=== PATIENT | female | born 1955 | race African-American/Black ===

== ENCOUNTER 2024-08-24 14:04 | Inpatient (IN) | payer MEDICARE, MEDICAID ==
[~2024-08-24] VITALS: Ht 157.5 cm; Wt 142.4 kg
[~2024-08-24 14:04] MED LIST: ASPI-1450 PO; ATOR20TA PO; CHOL200059 PO; ESCI-8 PO; HYDR25TA2 PO; LOSA-382 PO; MEMA5TAB41 PO; METF-1211 PO; QUET25TA PO
[2024-08-24] MEDS ORDERED: RISP1TAB48 PO (14:37)
[2024-08-24 14:42] LABS: COVID AG,FIA SOURCE NASAL SWAB
[2024-08-24 14:49] LABS: BASOPHILS % (AUTO) 0.7 % (0.0-2.0); EOSINOPHILS % (AUTO) 0.6 % (1.0-6.0); HEMATOCRIT 37.5 % (36-46); HEMOGLOBIN 12.1 g/dL (12.0-16.0); LYMPHOCYTES # (AUTO) 1.2 K/uL (1.0-4.8); LYMPHOCYTES % (AUTO) 14.2 % (22.0-44.0); MEAN CORPUSCULAR HEMOGLOBIN 28.8 pg (26.0-34.0); MEAN CORPUSCULAR HGB CONC 32.2 G/dL (31.0-37.0); MEAN CORPUSCULAR VOLUME 89 fL (80-100); MONOCYTES # (AUTO) 0.6 K/uL (0.1-1.0); MONOCYTES % (AUTO) 7.4 % (2.0-9.0); NEUTROPHILS # (AUTO) 6.5 K/uL (1.8-7.7); NEUTROPHILS % (AUTO) 77.1 % (40.0-70.0); PLATELET COUNT (AUTO) 273 K/uL (150-450); RED CELL DISTRIBUTION WIDTH 15.3 % (11.5-14.5); WHITE BLOOD COUNT (AUTO) 8.5 K/uL (4.5-11.0)
[2024-08-24 14:53] LABS: ANION GAP 7 mmol/L (8-16); CALCIUM, TOTAL 8.8 mg/dL (8.8-10.5); CARBON DIOXIDE 32 mmol/L (22-29); CHLORIDE 103 mmol/L (98-107); CREATININE 0.92 mg/dL (0.60-1.30); GLOMERULAR FILTR. RATE CALC > 60 mL/min (>60); GLUCOSE,RANDOM 100 mg/dL (70-110); POTASSIUM 3.8 mmol/L (3.5-5.1); SODIUM SERUM 142 mmol/L (136-145); UREA NITROGEN, BLOOD 16 mg/dL (7-18)
[2024-08-24 15:06] LABS: ALCOHOL, BLOOD (SERUM) < 3 mg/dL (0-10)
[2024-08-24 15:23] LABS: SARS-COV2 (COVID) ANTIGEN,FIA Negative (Negative)
[2024-08-24] MEDS ORDERED: MEMA10TA21 PO (20:45)
[2024-08-24] MEDS: LORazepam 2 MG TABLET PO PRN (21:22)
[2024-08-24] MEDS: HALOPERIDOL 5 MG TABLET PO PRN (21:22)
[2024-08-25] VITALS (7 sets, daily range): BP systolic 131–144; BP diastolic 63–88; PULSE 43–58; RESP 16–18; TEMP 96.7–98.5; O2SAT 98–100
[2024-08-25 06:55] LABS: GLUCOMETER DEV NAME(LOC) BV3S.; GLUCOSE,POINT OF CARE 78 MG/DL (70-110)
[2024-08-25] MEDS ORDERED: MAGNESIUM HYDROXIDE SUSPENSION 30 ML UDCUP PO PRN (08:00)
[2024-08-25] MEDS ORDERED: NICOTINE 14 MG/24 HOUR PATCH TD PRN (08:00)
[2024-08-25] MEDS ORDERED: LOPERAMIDE HCL 2 MG CAPSULE PO PRN (08:00)
[2024-08-25] MEDS ORDERED: ONDANSETRON 4 MG TABLET PO PRN (08:00)
[2024-08-25] MEDS ORDERED: CloNIDine HCL 0.1 MG TABLET PO PRN (08:00)
[2024-08-25] MEDS ORDERED: PETROLATUM,WHITE 28 GM JELLY TP PRN (08:00)
[2024-08-25] MEDS ORDERED: GuaiFENesin/D-METHORPHAN [SUGAR-FREE] 200-20MG/10 ML SYRUP UDCUP PO PRN (08:00)
[2024-08-25] MEDS ORDERED: IBUPROFEN 400 MG TABLET PO PRN (08:00)
[2024-08-25] MEDS ORDERED: MAG HYDROX/ALUMINUM HYD/SIMETH ES 30 ML SUSPENSION UDCUP PO PRN (08:00)
[2024-08-25] MEDS ORDERED: DOCUSATE SODIUM 100 MG CAPSULE PO PRN (08:00)
[2024-08-25] MEDS ORDERED: ALBUTEROL SULFATE HFA 90 MCG/PUFF 8 GM INHALER IH PRN (08:00)
[2024-08-25 09:22] LABS: THYROID STIMULATING HORMONE 2.62 uIU/mL (0.36-3.74)
[2024-08-25] MEDS: HYDROCHLOROTHIAZIDE 25 MG TABLET PO SCH (09:49)
[2024-08-25] MEDS: ASPIRIN 81 MG CHEWABLE TABLET PO SCH (09:49)
[2024-08-25] MEDS: MetFORMIN HCL 500 MG TABLET PO SCH (16:45)
[2024-08-25] MEDS: MEMANTINE HCL 10 MG TABLET PO SCH (16:45)
[2024-08-25] MEDS: RisperiDONE 1 MG TABLET PO SCH (21:23)
[2024-08-25] MEDS: ATORVASTATIN CALCIUM 20 MG TABLET PO SCH (21:23)
[2024-08-26 06:15] LABS: GLUCOMETER DEV NAME(LOC) BV3S.; GLUCOSE,POINT OF CARE 90 MG/DL (70-110)
[2024-08-26 08:48] VITALS: BP 113/72; PULSE 83; RESP 16; TEMP 96.9; O2SAT 97
[2024-08-26 08:48] LABS: HEMOGLOBIN A1C 5.5 % (3.8-5.6)
[2024-08-26] MEDS: CHOLECALCIFEROL (VIT D3) 2,000 UNITS [50 MCG] TABLET PO SCH (08:53)
[2024-08-26] MEDS: ESCITALOPRAM OXALATE 10 MG TABLET PO SCH (08:54)
[2024-08-26 08:57] LABS: CHOL/HDL RATIO 1.9 (3.9-5.7); THYROID STIMULATING HORMONE 2.57 uIU/mL (0.36-3.74)
[2024-08-26 20:40] VITALS: BP 101/66; PULSE 73; RESP 16; TEMP 97.3; O2SAT 95
[2024-08-27 09:18] VITALS: BP 104/69; PULSE 90; RESP 16; TEMP 98.4; O2SAT 98
[2024-08-27 11:33] VITALS: BP 104/69; PULSE 90; RESP 16; TEMP 98.4; O2SAT 98
[2024-08-27 20:47] VITALS: RESP 16
[2024-08-27] MEDS: ACETAMINOPHEN 325 MG TABLET PO PRN (20:47)
[2024-08-27 21:25] VITALS: BP 110/68; PULSE 70; RESP 16; TEMP 96.4; O2SAT 98
[2024-08-27 21:47] VITALS: RESP 16
[2024-08-28 08:14] VITALS: BP 115/71; PULSE 63; RESP 16; TEMP 96.9; O2SAT 97
[2024-08-28 20:12] VITALS: BP 105/60; PULSE 85; RESP 18; TEMP 97.8; O2SAT 96
[2024-08-28 20:15] VITALS: BP 103/56; PULSE 89; RESP 16; TEMP 96.2; O2SAT 97
[2024-08-29 05:06] VITALS: RESP 18
[2024-08-29 07:05] LABS: GLUCOMETER DEV NAME(LOC) BV3S.; GLUCOSE,POINT OF CARE 81 MG/DL (70-110)
[2024-08-29 08:43] VITALS: BP 130/67; PULSE 60; RESP 16; TEMP 96.9; O2SAT 95
[2024-08-29 11:09] VITALS: BP 130/67; PULSE 60; RESP 16; TEMP 96.9; O2SAT 95
[2024-08-30 00:32] VITALS: RESP 17; O2SAT 96
[2024-08-30 00:34] VITALS: RESP 17; O2SAT 95
[2024-08-30 09:00] VITALS: BP 102/59; PULSE 61; RESP 16; RESP 17; TEMP 96; TEMP 96.8; O2SAT 96
[2024-08-30 20:11] VITALS: BP 117/62; PULSE 66; RESP 16; TEMP 96.6; O2SAT 96
[2024-08-31 20:10] VITALS: BP 121/83; PULSE 70; RESP 18; TEMP 96.6; O2SAT 97
[2024-08-31] MEDS: ZOLPIDEM TARTRATE 10 MG TABLET PO PRN (21:11)
[2024-09-01 08:31] VITALS: BP 104/64; PULSE 88; RESP 17; TEMP 97.5; O2SAT 99
[2024-09-01 21:18] VITALS: BP 119/70; PULSE 62; RESP 17; TEMP 97; O2SAT 96
[2024-09-01 21:26] VITALS: BP 119/70; PULSE 62; RESP 17; TEMP 97; O2SAT 96
[2024-09-02 08:24] VITALS: RESP 16
[2024-09-02 10:10] VITALS: BP 119/76; PULSE 44; RESP 12; TEMP 98; O2SAT 97
[2024-09-02 11:51] LABS: GLUCOMETER DEV NAME(LOC) BV3S.; GLUCOSE,POINT OF CARE 75 MG/DL (70-110)
== END 2024-09-02 17:42 | disposition short-term general hospital (02) | DRG 885 ==
LOC: EMS 14:05 → B3A 08-25 01:51
PROVIDERS: ADMIT Psychiatry & Neurology Child & Adolescent Psychiatry; ATTEND Psychiatry & Neurology Child & Adolescent Psychiatry
PROC: GZHZZZZ Group Psychotherapy (ICD-10-PCS; principal; 2024-08-25)
PROC: GZ52ZZZ Individual Psychotherapy, Cognitive (ICD-10-PCS; 2024-08-25)
PROC: GZ56ZZZ Individual Psychotherapy, Supportive (ICD-10-PCS; 2024-08-25)
DX: F25.1 Schizoaffective disorder, depressive type (principal); Z68.43 Body mass index [BMI] 50.0-59.9, adult; F03.918 Unspecified dementia, unspecified severity, with other behavioral disturbance; E11.9 Type 2 diabetes mellitus without complications; E66.9 Obesity, unspecified; I10 Essential (primary) hypertension; F63.9 Impulse disorder, unspecified; Z88.0 Allergy status to penicillin; Z20.822 Contact with and (suspected) exposure to COVID-19; E78.00 Pure hypercholesterolemia, unspecified; I25.10 Atherosclerotic heart disease of native coronary artery without angina pectoris; F42.9 Obsessive-compulsive disorder, unspecified; Z79.899 Other long term (current) drug therapy; E55.9 Vitamin D deficiency, unspecified; R00.1 Bradycardia, unspecified
CPT/HCPCS: 80048; 80061; 82962; 83036; 84439; 84443; 85025; 87081; 99285; G0480